=== PATIENT | male | born 1970 | race Caucasian/White ===

== ENCOUNTER 2020-11-01 01:18 | Emergency (ER) | payer OTHER, SELFPAY ==
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
[2020-11-01 01:27] VITALS: BP 156/103; PULSE 88; O2SAT 96
[2020-11-01 01:33] VITALS: BP 128/92; PULSE 98; RESP 18; TEMP 36.1; O2SAT 95; BMI 32.3
--- NOTE | 2020-11-01 02:16 | PC.NURSE ---
DR CUMMINS EVALUATING PATIENT AT THIS TIME
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
--- NOTE | 2020-11-01 03:29 | PC.NURSE ---
DR CUMMINS UPDATED PATIENT ON RESULTS OF CT SCAN AND PLAN OF CARE. WOUND CLEANSED AND DERMABOND APPLIED BY MD CHARLTON REMAIN INTACT. AMBULATORY, GAIT STEADY
== END 2020-11-01 03:32 | disposition home or self-care (01) ==
PROVIDERS: Emergency Provider Emergency Medicine
DX: S05.32XA Ocular laceration without prolapse or loss of intraocular tissue, left eye, initial encounter (principal); H57.12 Ocular pain, left eye; G44.309 Post-traumatic headache, unspecified, not intractable; Y04.8XXA Assault by other bodily force, initial encounter; Y93.9 Activity, unspecified; Y92.9 Unspecified place or not applicable; Y99.9 Unspecified external cause status; Z79.899 Other long term (current) drug therapy
CPT/HCPCS: 12013; 70450; 70486; 99283; 99284

== ENCOUNTER 2022-07-16 09:10 | Emergency (ER) | payer OTHER, SELFPAY ==
[2022-07-16 09:15] VITALS: BP 153/93; PULSE 96; RESP 16; TEMP 35.8; O2SAT 95; BMI 32.5
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
[2022-07-16] MEDS: Lidocaine HCl 1 % MPF 5 ML VIAL INFILTRATI (09:47)
[2022-07-16] MEDS: Lidocaine HCl 1 % MPF 5 ML VIAL SUBCUT (09:48)
== END 2022-07-16 10:44 | disposition home or self-care (01) ==
PROVIDERS: Emergency Provider Internal Medicine
DX: S61.411A Laceration without foreign body of right hand, initial encounter (principal); W26.0XXA Contact with knife, initial encounter; Y93.G3 Activity, cooking and baking; Y92.000 Kitchen of unspecified non-institutional (private) residence as the place of occurrence of the external cause; Y99.9 Unspecified external cause status
CPT/HCPCS: 12002; 99283; 99284

== ENCOUNTER 2023-02-22 09:13 | Outpatient (AMB) | payer OTHER, SELFPAY ==
[2023-02-22 09:33] VITALS: BP 140/80; PULSE 97; TEMP 36.6; O2SAT 97
--- NOTE | 2023-02-22 09:33 | AM.OFFWIN_ITS ---
Intake Vital Signs 02/22/23 09:33 Height 6 ft BP 140/80 H Blood Pressure Location Rt brachial Position Sitting Pulse 97 Pulse Source Pulse Oximeter Temp 97.9 F Temp Source Temporal Artery Scan Pulse Oximetry (%) 97 Intake Visit Reasons: EP Swollen painful glands [id number] Intake Note: pt is here for c.o sore throat, swollen glands, a few days Patient Tobacco Use Status: Current everyday Tobacco user Allergies aspirin [ASA] Allergy (Unknown, Verified 02/22/23 09:35) HIVES Medication List - Last Reconciled 02/22/23 by Ghislaine Saavedra NP amoxicillin 500 mg PO BID 10 days phenol 1.4% (Chloraseptic Throat [place]) 4 sprays mucous membrane Q4H PRN Do you need a note to return to daycare/school/sports/work: Yes HPI HPI Comments History of Present Illness Details 52 y/o male presents to walk in clinic w ith c/o sore-throat and swollen glands. Reports that symptoms started 3 days ago. He has not taken any OTC medications. COVID negative at home. Reports poor appetite, chills and body ache. Reports hard to swallow. Denies any recent sick contacts. [facility] Medical History No known health problems Social History Patient Tobacco Use Status: Current everyday Tobacco user Review of Systems Const All systems reviewed & are unremarkable except as noted in HPI and below Physical Exam Vital Signs: Last Vital Signs Temp 97.9 F 02/22/23 09:33 Pulse 97 02/22/23 09:33 BP 140/80 H 02/22/23 09:33 Pulse Ox 97 02/22/23 09:33 Const General: no acute distress HEENT Head: Yes normocephalic Ears: TM's normal bilaterally General nose exam: Normal septum present and No nasal discharge present Face and sinus: Yes sinuses nontender Mouth: moist mucous membranes Throat: Yes uvula midline, Yes posterior oropharynx abnormal (Red beefy oralpharynx), Yes postnasal drainage and Yes other (swollen tonsils and redness) Resp Effort & Inspection: normal respiratory effort Auscultation: clear to auscultation bilaterally Cardio Rate: regular rate Rhythm: regular rhythm Results AMB Rapid Strep AMB Rapid Strep Negative Last Edit by Naga Pace CMA on 02/22/23 09 :52 Results Reviewed Results Reviewed: Laboratory Last Values Strep Scn Rapid Clinic Negative 02/22/23 09:51 Assessment & Plan Assessment & Plan (1) Acute pharyngitis: Code(s): J02.9 - Acute pharyngitis, unspecified Qualifiers: Pharyngitis/tonsillitis etiology: other specified organisms Qualified Code(s): J02.8 - Acute pharyngitis due to other specified organisms Plan: OTC cough medicine, warm fluids, rest. Abx for 10 days. Plan OTC cough medicine, warm fluids, rest. Abx for 10 days. Orders: Orders AMB Rapid Strep Screen Today Z13.9 - Encounter for screening, unspecified Medications: New phenol 1.4% (Chloraseptic Throat [place]) 4 sprays mucous membrane Q4H PRN 20 mL 0RF sore throat B96.89 - Other specified bacterial agents as the cause of diseases classified elsewhere, J02.8 - Acute pharyngitis due to other specified organisms amoxicillin 500 mg PO BID 10 days 20 caps 0RF J02.9 - Acute pharyngitis, unspecified Coding Level of Care Code Est Pt Level 3 (65384) Diagnoses Acute pharyngitis due to other specified organisms J02.8 Pharyngitis/tonsillitis etiology: other specified organisms Time Spent (min) 15
== END 2023-02-22 10:54 | disposition home or self-care (01) ==
PROVIDERS: Visit Provider Nurse Practitioner Family
DX: J02.8 Acute pharyngitis due to other specified organisms (principal)
CPT/HCPCS: 87880; 99213

== ENCOUNTER 2023-05-09 19:00 | Emergency (ER) | payer OTHER, SELFPAY ==
--- NOTE | ~2023-05-09 | US_ITS ---
EXAMINATION: US VENOUS ULTRASOUND WITH DOPPLER LOWER EXTREMITY, RIGHT CLINICAL INFORMATION: Calf pain COMPARISON: None available. TECHNIQUE: Ultrasound of the deep veins is performed from the hip to the calf with compression sonography and color and pulse Doppler assessment. Spectral analysis with color-flow imaging is performed. FINDINGS: There is normal venous compression and respiratory variation and augmented flow. The visualized common femoral vein, superficial femoral vein, profunda femoral vein, popliteal vein, and the trifurcation region shows no evidence of deep venous thrombosis. There is no significant popliteal fossa cyst. If the patient's symptoms persist, followup ultrasound in 5 days 7 days might be of value to exclude proximal propagation from a non-visualized calf vein. US/US venous duplex LE RT IMPRESSION: No DVT demonstrated in the right lower extremity.
--- NOTE | ~2023-05-09 | XR_ITS ---
EXAMINATION: XR FOOT, RIGHT CLINICAL INFORMATION: Pain. COMPARISON: None available. TECHNIQUE: AP, lateral, and oblique views of the right foot. FINDINGS: The bones and soft tissues are normal. No fracture. Alignment is anatomic. Joint spaces are maintained. There is a small calcaneal heel enthesophyte. XR/XR foot RT min 3V IMPRESSION: Small calcaneal heel enthesophyte. Otherwise unremarkable right foot exam
--- NOTE | 2023-05-09 19:38 | ED.GENADULT ---
HPI - General Adult General Chief complaint: Extremity Problem Stated complaint: foot pain Time Seen by Provider: 05/09/23 22:12 History of Present Illness HPI narrative: The patient is a 53-year-old male who denies any significant past medical history. He has on no medications. He smokes 1 pack a day. He also drinks alcohol fairly regularly. 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 The patient says that he woke up this morning and had pain on the lateral aspect of his right foot that was mild at first but progressively got worse throughout the day until the point where it became excruciating and he came to the emergency room. He denies any injury. He has never had anything like this before. No fever, sweats, chills. He denies any history of gout. He denies any unusual activities yesterday. The pain is primarily on the lateral aspect of the foot. He also has some pain at the back of his calf radiating to his knee. Related Data Previous Rx's Medication Instructions Recorded amoxicillin 500 mg capsule 500 mg PO BID 10 days #20 caps 02/22/23 phenol 1.4 % mucosal aerosol spray 4 spray mucous membrane Q4H PRN 02/22/23 (Chloraseptic Throat [facility]) sore throat #20 mL ibuprofen 800 mg tablet 800 mg PO TID PRN pain #20 tabs 05/09/23 oxycodone 5 mg tablet 5 mg PO Q6H PRN pain #16 tabs 05/09/23 omeprazole 20 mg capsule,delayed 20 mg PO DAILY #20 caps 05/10/23 release Allergies Allergy/AdvReac Type Severity Reaction Status Date / Time aspirin [ASA] Allergy Unknown HIVES Verified 02/22/23 09:35 Review of Systems Review of Systems: Yes all other systems are reviewed and are negative [facility] Past Medical History Medical History No known health problems Social History Social History Patient Tobacco Use Status: Current everyday Tobacco user Smoked in Last 30 Days: Yes Use of substances other than those prescribed or required for medical reasons: No Advance Directives: No Advance Directives Information Provided: No Physical Exam ED Vital Signs: Vital Signs - 24 hr 05/09/23 19:39 05/10/23 00:58 Temperature 99.2 F 99 F Pulse Rate 100 78 Respiratory Rate 18 16 Blood Pressure 146/72 H Pulse Oximetry 97 97 Oxygen Delivery Method Room Air Room Air BMI result Body Mass Index 33.6 Const Other: The patient is a 53-year-old male who was awake and alert and seems uncomfortable. HENMT Other: Face is symmetrical. Mucous membranes are moist Eyes Other: Pupils are round equal, conjunctivae clear, extraocular movements intact Neck Other: Moving his neck easily Resp Effort & Inspection: normal respiratory effort and prolonged expiratory phase Cardio Rate: regular rate Rhythm: regular rhythm Heart sounds: S1 normal heart sound present and S2 normal heart sound present GI Other: Abdomen is soft and nontender Skin Other: There is edema to the dorsum of the right foot. On the lateral aspect of the dorsum of the foot is a patch of very pale erythema. There is also edema over the right lateral malleolus. No edema to the medial malleolus. Neuro Other: The patient is awake and alert, pleasant and cooperative. Speech is clear. Moves extremities symmetrically although the right foot is limited by pain. Grossly neurologically intact. Extrem Other: There is edema to the dorsum of the right foot and over the lateral malleolus. There is some very pale erythema on the lateral aspect of the dorsum of the right foot. Entire midfoot is very tender. There is some mild tenderness to the proximal right calf but no actual calf edema. Course Course Course Narrative: This is an RME: Additional HPI, ROS, PE not included below will be deferred to primary provider. This is a 53-year-old male, with no known medical problems, presenting to the emergency department for evaluation of right foot pain. No hx of similar symptoms in the past. Ruptured tendon in right foot last year. No fevers or chills. Plan: Labs, ultrasound, x-ray Medications Administered Discontinued Medications Generic Name Dose Route Start Last Admin Trade Name Javonq PRN Reason Stop Dose Admin Acetaminophen 975 mg 05/09/23 22:37 05/09/23 22:50 Acetaminophen 325 Mg Tablet PO 05/09/23 22:38 975 mg ONCE ONE Administration Oxycodone HCl 10 mg 05/09/23 22:35 05/09/23 22:49 Oxycodone Hcl Immed Release 5 Mg Tablet PO 05/09/23 22:36 10 mg ONCE ONE Administration Medical Decision Making Medical Decision Making [facility] Narrative: The patient is 53-year-old male who presents with atraumatic severe right foot pain not associated with fever. He looks extremely uncomfortable. There is swelling to the dorsum of the foot and the lateral malleolus. There is some very pale erythema on the dorsum of the foot. He does not have a fever here. His white count is 11.2 but there is no left shift. CRP is 1.93, ESR is 7. Uric acid is mildly elevated at 8.3. Foot x-ray unremarkable. Right leg venous ultrasound is negative for DVT. Clinically given the severity of the patient's pain and the lack of clinical indicators of an acute infectious process I think that gout is the most likely diagnosis in this case. He was treated with IM ketorolac and oxycodone. She was. He will be advised to stay off the foot for several days. He will use ibuprofen 800 mg t.i.d. and acetaminophen. He was also prescribed oxycodone. He was also prescribed a course of omeprazole to take while taking the ibuprofen. Stridor reconnect with his PCP or get a new PCP. He should return to the emergency room if worse. He was given a work note Lab Data 05/09/23 20:29 05/09/23 20:29 Labs: Lab Results 05/09/23 Range/Units 20:29 WBC 11.2 H (4.8-10.8) X10*3/uL RBC 4.63 (4.60-5.80) X10*6/uL Hgb 15.1 (14.0-18.0) g/dl Hct 43.6 (42.0-52.0) % MCV 94.2 (80.0-98.0) fL MCH 32.6 (27.0-33.0) pg MCHC 34.6 (31.0-36.0) g/dl RDW 13.4 (11.0-16.0) % Plt Count 198 (160-400) X10*3/uL MPV 10.0 (9.4-12.4) fL Immature Gran % (Auto) 0.4 (0.0-0.4) % Neut % (Auto) 72.9 (45-73) % Lymph % (Auto) 18.4 L (20-40) % [place] % (Auto) 6.8 (2-11) % Eos % (Auto) 1.2 (0-4) % Baso % (Auto) 0.3 (0-2) % Lymph # (Auto) 2.1 (1.2-4.9) X10*3/uL [place] # (Auto) 0.8 (0.1-1.2) X10*3/uL Eos # (Auto) 0.1 (0.0-0.4) X10*3/uL Baso # (Auto) 0.0 (0.0-0.2) X10*3/uL Abs Immat Gran (auto) 0.04 H (0.00-0.03) X10*3/uL Absolute Neuts (auto) 8.2 (2.0-8.3) x10*3/uL Absolute Nucleated RBC 0.000 (0.0-0.012) X10*3/uL Nucleated RBC % (auto) 0.0 (0.0-0.2) /100WBC ESR 7 (0-15) MM/HR Sodium 137 (135-145) mmol/L Potassium 3.8 (3.3-5.1) mmol/L Chloride 107 (96-108) mmol/L Carbon Dioxide 18 L (22-29) mmol/L Anion Gap 16 (12-20) BUN 13 (9-16) mg/dL Creatinine 0.93 (0.5-1.4) mg/dL Estim Creat Clear Calc 118.9 Estimated GFR > 60 Random Glucose 129 H (60-115) mg/dL Uric Acid 8.3 H (3.4-7.0) mg/dL Calcium 8.8 (8.4-10.2) mg/dL Total Bilirubin 0.4 (0.0-1.0) mg/dL Direct Bilirubin 0.1 (0.0-0.5) mg/dL AST 62 H (5-37) U/L ALT 60 H (0-40) U/L Alkaline Phosphatase 100 (39-117) U/L Total Creatine Kinase 387 H (38-174) U/L C-Reactive Protein 1.93 H (< or = 0.50) mg/dL Total Protein 7.7 (6.5-8.0) g/dL Albumin 4.1 (3.5-5.0) g/dL Discharge Plan Discharge Clinical Impression: Acute pain of right foot, Gout Patient Disposition: Home, Self-Care Instructions: Gout (ED) Additional Instructions: I think the pain in your right foot is being caused by a condition called gout. Gout is a mysterious inflammation of joints. It can affect any area of the body. You have been given crutches to keep weight off the foot. Ibuprofen as an anti-inflammatory medication that helps with the pain and helps with the inflammation of gout. Please take the prescribed ibuprofen 3 times a day until you are feeling better. Ibuprofen can be irritating to the stomach. I have sent a prescription for omeprazole, a medication which helps protect the lining of the stomach. Please take this while you are taking the ibuprofen. You may also take 2 extra-strength acetaminophen (Tylenol) up to 3 times a day as well as needed. Additionally I have sent a prescription for oxycodone, a narcotic pain medication, which you may use as well as needed for pain. Please plan on resting and taking it easy for the next several days. Keep the foot elevated. Please contact your previous primary care doctor's office in the morning to see if they would be able to see you for this problem. If you are unable to see your old primary care doctor please work on getting a new primary care doctor. If at any point you feel the pain is significantly worse or if you develop a fever or think simply seem a lot worse please return to the emergency room for another evaluation. Prescriptions: New ibuprofen 800 mg tablet 800 mg PO TID PRN (Reason: pain) Qty: 20 0RF oxycodone 5 mg tablet 5 mg PO Q6H PRN (Reason: pain) Qty: 16 0RF Rx Instructions: Partial Fill upon patient request. omeprazole 20 mg capsule,delayed release(DR/EC) 20 mg PO DAILY Qty: 20 0RF No Action amoxicillin 500 mg capsule 500 mg PO BID 10 Days Qty: 20 0RF Chloraseptic Throat [facility] [place] 1.4 % aerosol,spray 4 spray mucous membrane Q4H PRN (Reason: sore throat) Qty: 20 0RF Referrals: Jim Mckenna MD [Physician] - (presumed gout) Stand Alone Forms: Work/School Release Interventions: ED Discharge Assessment Last Done: 05/10/23 00:58 Discharge Date/Time: 05/10/23 00:59
[2023-05-09 19:39] VITALS: PULSE 100; RESP 18; TEMP 37.3; O2SAT 97; BMI 33.6
[2023-05-09 20:34] LABS: MANUAL DIFF FLAG NO
[2023-05-09 20:38] LABS: Basophils Percent Auto 0.3 % (0-2); Eosinophils Absolute Auto 0.1 X10*3/uL (0.0-0.4); Eosinophils Percent Auto 1.2 % (0-4); Hematocrit 43.6 % (42.0-52.0); Hemoglobin 15.1 g/dl (14.0-18.0); Imm Gran Abs Auto 0.04 X10*3/uL (0.00-0.03); Imm Gran Pct Auto 0.4 % (0.0-0.4); Lymphocytes Absolute Auto 2.1 X10*3/uL (1.2-4.9); Lymphocytes Percent Auto 18.4 % (20-40); Mean Corpuscular HGB Conc 34.6 g/dl (31.0-36.0); Mean Corpuscular Hemoglobin 32.6 pg (27.0-33.0); Mean Corpuscular Volume 94.2 fL (80.0-98.0); Monocytes Absolute Auto 0.8 X10*3/uL (0.1-1.2); Monocytes Percent Auto 6.8 % (2-11); Neutrophils Absolute Auto 8.2 x10*3/uL (2.0-8.3); Neutrophils Percent Auto 72.9 % (45-73); Platelet Count 198 X10*3/uL (160-400); Red Blood Count 4.63 X10*6/uL (4.60-5.80); Red Cell Distribution Width 13.4 % (11.0-16.0); White Blood Count 11.2 X10*3/uL (4.8-10.8)
[2023-05-09 21:03] LABS: Alanine Aminotransferase 60 U/L (0-40); Albumin Level 4.1 g/dL (3.5-5.0); Alkaline Phosphatase 100 U/L (39-117); Anion Gap 16 (12-20); Aspartate Amino Transferase 62 U/L (5-37); Bilirubin Direct 0.1 mg/dL (0.0-0.5); Bilirubin Total 0.4 mg/dL (0.0-1.0); Blood Urea Nitrogen 13 mg/dL (9-16); C Reactive Protein 1.93 mg/dL (< or = 0.50); Calcium 8.8 mg/dL (8.4-10.2); Carbon Dioxide 18 mmol/L (22-29); Chloride 107 mmol/L (96-108); Creatinine Clr Calc Pharmacy 118.9; Estimated Glomerular Filt Rate > 60; Glucose Random 129 mg/dL (60-115); Potassium 3.8 mmol/L (3.3-5.1); Sodium 137 mmol/L (135-145); Total Protein 7.7 g/dL (6.5-8.0); Uric Acid 8.3 mg/dL (3.4-7.0)
[2023-05-09 21:22] LABS: Erythrocyte Sedimentation Rate 7 MM/HR (0-15)
[2023-05-09] MEDS: oxyCODONE HCl Immed Release 5 MG TABLET 10 MG PO (22:49)
[2023-05-09] MEDS: Acetaminophen 325 MG TABLET 975 MG PO (22:50)
[2023-05-10 00:58] VITALS: BP 146/72; PULSE 78; RESP 16; TEMP 37.2; O2SAT 97
== END 2023-05-10 00:59 | disposition home or self-care (01) ==
PROVIDERS: Physician Assistant Medical; Emergency Provider Emergency Medicine
DX: M10.9 Gout, unspecified (principal); M79.671 Pain in right foot
CPT/HCPCS: 36415; 73630; 80048; 80076; 82550; 84550; 85025; 85652; 86140; 93971; 99284